=== PATIENT | male | born 1950 | race Caucasian/White ===

== ENCOUNTER 2017-06-08 12:48 | Emergency (ER) | payer OTHER ==
[2017-06-08 13:04] VITALS: BP 166/99
--- NOTE | 2017-06-08 13:20 | EDM.PDOC ---
ED HPI GENERAL MEDICAL PROBLEM - General Chief Complaint: Genitourinary Problem Stated Complaint: URINATING BLOOD Time Seen by Provider: 06/08/17 13:10 Source of Information: Reports: Patient, Old Records History Limitations: Reports: No Limitations - History of Present Illness INITIAL COMMENTS - FREE TEXT/NARRATIVE: 67 yo male [place] patient presents with gross, painless hematuria since yesterday. No fever or flank pain. No recent trauma. Has mild dysuria. No radiating pain or nausea or hx of kidney stones. Is not on warfarin or other anticoagulant other than ASA. Does not feel like he is retaining urine. Onset: Gradual Onset Date: 06/07/17 Duration: Hour(s):, Getting Worse Location: Reports: Other (urethral) Quality: Reports: Burning Severity: Mild Improves with: Reports: None Worsens with: Reports: Other (time/voiding) Context: Reports: Other (Hx of BPH) Associated Symptoms: Reports: No Other Symptoms Treatments LIGHTING ADVISER: Reports: Other (see below) (on Flomax chronically) Penis Pain Score (Numeric/FACES): 5 - Related Data Allergies Allergy/AdvReac Type Severity Reaction Status Date / Time carbamazepine Allergy Cannot Verified 04/02/16 12:37 Remember Home Meds: Home Meds Acetaminophen/HYDROcodone [[place] 325-5 MG] 1 tab PO DAILY 12/14/13 [History] Aspirin [Ecotrin] 81 mg PO DAILY 12/14/13 [History] Calcium Carbonate/Vitamin D3 [Calcium 600 + Vit D 400] 1 each PO BID 12/14/13 [ History] Cholecalciferol (Vitamin D3) [Vitamin D3] 2,000 unit PO DAILY 12/14/13 [History] Cyclobenzaprine [Flexeril] 10 mg PO BID 12/14/13 [History] Fish Oil/[place]-3 Fatty Acids [Fish Oil 1,000 MG] 2 each PO DAILY 12/14/13 [ History] Levothyroxine 25 mcg PO ACBRK 12/14/13 [History] Lisinopril [Prinivil] 20 mg PO DAILY 12/14/13 [History] Naproxen 250 mg PO BID 12/14/13 [History] Sodium Chloride 0.65% [[place] Nasal [place]] 1 spray INH QID 12/14/13 [History] atorvaSTATin Calcium [Atorvastatin Calcium] 40 mg PO DAILY 12/14/13 [History] Tamsulosin [Flomax] 1 tab PO DAILY 05/04/15 [History] Sulfamethoxazole/Trimethoprim [Bactrim Ds Tablet] 1 each PO BID #14 tablet 06/08 [Rx] Past Medical History HEENT History: Reports: Hard of Hearing, Impaired Vision Cardiovascular History: Reports: CAD, High Cholesterol, Hypertension, [place] Gastrointestinal History: Reports: Bowel Obstruction, GERD Genitourinary History: Reports: BPH, Prostate Disorder Musculoskeletal History: Reports: Back Pain, Chronic, Other (See Below) Other Musculoskeletal History: Lower back disc degenerative Neurological History: Reports: Head Trauma Psychiatric History: Reports: PTSD Endocrine/Metabolic History: Reports: Hypothyroidism - Infectious Disease History Infectious Disease History: Reports: Chicken Pox, Measles, Mumps - Past Surgical History GI Surgical History: Reports: Colon Other GI Surgeries/Procedures: tumor out of stomach Other Neurological Surgeries/Procedures: tumors taken out of back Social & Family History - Family History Cardiac: Reports: [place] - Tobacco Use Smoking Status *Q: Never Smoker Second Hand Smoke Exposure: Yes - Caffeine Use Caffeine Use: Reports: Coffee - Alcohol Use Days Per Week of Alcohol Use: 0 - Recreational Drug Use Recreational Drug Use: No ED ROS GENERAL - Review of Systems Review Of Systems: See Below Constitutional: Reports: No Symptoms GI/Abdominal: Reports: No Symptoms : Reports: Dysuria (mild) Musculoskeletal: Reports: No Symptoms Skin: Reports: No Symptoms ED EXAM, RENAL/ - Physical Exam Exam: See Below Exam Limited By: No Limitations General Appearance: Alert, WD/WN, No Apparent Distress GI/Abdominal: Normal Bowel Sounds, Soft, Non-Tender, No Distention. No: Distended Back Exam: No: CVA Tenderness (R), CVA Tenderness (L) Extremities: Normal Inspection, Normal Range of Motion, Non-Tender, No Pedal Edema Neurological: Alert, Oriented, CN II-XII Intact, Normal Cognition, No Motor/ Sensory Deficits Psychiatric: Normal Affect, Normal Mood Skin Exam: Warm, Dry, Intact, Normal Color, No Rash Lymphatic: No Adenopathy Course - Vital Signs Last Recorded V/S: Last Vital Signs Temp 36.2 C 06/08/17 13:03 Pulse 74 06/08/17 13:03 Resp 18 06/08/17 13:03 BP 166/99 H 06/08/17 13:03 Pulse Ox 97 06/08/17 13:03 - Orders/Labs/Meds Orders: Active Orders 24 hr Category Date Time Status CULTURE URINE [RM] Stat Lab 06/08/17 13:06 Received Departure - Departure Time of Disposition: 13:20 Disposition: Home, Self-Care 01 Condition: Good Clinical Impression: Hematuria syndrome - Discharge Information Prescriptions: Sulfamethoxazole/Trimethoprim [Bactrim Ds Tablet] 1 each PO BID #14 tablet Referrals: PCP,None [Primary Care Provider] - Forms: ED Department Discharge Additional Instructions: Take Bactrim DS with plenty of water every 12 hrs. F/U in the clinic either last appt of the day on Monday or Monday if an appt is available. - My Orders Last 24 Hours: My Active Orders 06/08/17 13:06 CULTURE URINE [RM] Stat - Assessment/Plan Last 24 Hours: My Active Orders 06/08/17 13:06 CULTURE URINE [RM] Stat
== END 2017-06-08 13:40 | disposition home or self-care (01) ==
LOC: JP.ED 12:48
DX: R31.9 Hematuria, unspecified (principal); I25.2 Old myocardial infarction; I25.10 Atherosclerotic heart disease of native coronary artery without angina pectoris; I10 Essential (primary) hypertension; E78.00 Pure hypercholesterolemia, unspecified; K21.9 Gastro-esophageal reflux disease without esophagitis; E03.9 Hypothyroidism, unspecified; Z98.890 Other specified postprocedural states; Z79.82 Long term (current) use of aspirin; Z79.899 Other long term (current) drug therapy; Z88.8 Allergy status to other drugs, medicaments and biological substances
CPT/HCPCS: 87086; 99283; 99284

== ENCOUNTER 2018-01-14 00:12 | Emergency (ER) | payer OTHER ==
--- NOTE | 2018-01-14 00:53 | EDM.PDOC ---
ED HPI GENERAL MEDICAL PROBLEM - General Chief Complaint: Genitourinary Problem Stated Complaint: KIDNEY STONES Time Seen by Provider: 01/14/18 00:35 Source of Information: Reports: Patient, Family History Limitations: Reports: No Limitations - History of Present Illness INITIAL COMMENTS - FREE TEXT/NARRATIVE: 67-year-old male with a history of prostatic hypertrophy and acute urinary retention has redeveloped symptoms since 3:00 this afternoon. He's having a lot of lower abdominal pain, bladder distention, urgency, and able to only urinate small amounts frequently. No fever or chills. Onset: Sudden (Symptoms started around 10 hours ago) Severity: Moderate Associated Symptoms: Denies: Fever/Chills, Headaches, Nausea/Vomiting, Shortness of Breath Bladder Pain Score (Numeric/FACES): 8 - Related Data Allergies Allergy/AdvReac Type Severity Reaction Status Date / Time carbamazepine Allergy Cannot Verified 01/14/18 00:23 Remember Home Meds: Home Meds Acetaminophen/HYDROcodone [[place] 325-5 MG] 1 tab PO DAILY 12/14/13 [History] Aspirin [Ecotrin] 81 mg PO DAILY 12/14/13 [History] Calcium Carbonate/Vitamin D3 [Calcium 600 + Vit D 400] 1 each PO BID 12/14/13 [ History] Cholecalciferol (Vitamin D3) [Vitamin D3] 2,000 unit PO DAILY 12/14/13 [History] Cyclobenzaprine [Flexeril] 10 mg PO BID 12/14/13 [History] Fish Oil/[place]-3 Fatty Acids [Fish Oil 1,000 MG] 2 each PO DAILY 12/14/13 [ History] Levothyroxine 25 mcg PO ACBRK 12/14/13 [History] Lisinopril [Prinivil] 20 mg PO DAILY 12/14/13 [History] Naproxen 250 mg PO BID 12/14/13 [History] Sodium Chloride 0.65% [[place] Nasal [place]] 1 spray INH QID 12/14/13 [History] atorvaSTATin Calcium [Atorvastatin Calcium] 40 mg PO DAILY 12/14/13 [History] Tamsulosin [Flomax] 1 tab PO DAILY 05/04/15 [History] Sulfamethoxazole/Trimethoprim [Bactrim Ds Tablet] 1 each PO BID #14 tablet 06/08 [Rx] Past Medical History HEENT History: Reports: Hard of Hearing, Impaired Vision Cardiovascular History: Reports: CAD, High Cholesterol, Hypertension, [place] Gastrointestinal History: Reports: Bowel Obstruction, GERD Genitourinary History: Reports: BPH, Prostate Disorder Musculoskeletal History: Reports: Back Pain, Chronic, Other (See Below) Other Musculoskeletal History: Lower back disc degenerative Neurological History: Reports: Head Trauma Psychiatric History: Reports: PTSD Endocrine/Metabolic History: Reports: Hypothyroidism - Infectious Disease History Infectious Disease History: Reports: Other (See Below) Other Infectious Disease History: malaria - Past Surgical History GI Surgical History: Reports: Colon Other GI Surgeries/Procedures: tumor out of stomach Other Neurological Surgeries/Procedures: tumors taken out of back Musculoskeletal Surgical History: Reports: Hip Replacement Social & Family History - Family History Cardiac: Reports: [place] - Tobacco Use Smoking Status *Q: Never Smoker Second Hand Smoke Exposure: Yes - Caffeine Use Caffeine Use: Reports: Coffee - Alcohol Use Days Per Week of Alcohol Use: 0 - Recreational Drug Use Recreational Drug Use: No ED ROS GENERAL - Review of Systems Review Of Systems: See Below Constitutional: Denies: Fever, Chills Respiratory: Denies: Shortness of Breath Cardiovascular: Denies: Chest Pain GI/Abdominal: Reports: Abdominal Pain : Reports: Urgency, Urinary Retention ED EXAM, RENAL/ - Physical Exam Exam: See Below Exam Limited By: No Limitations General Appearance: Alert, Moderate Distress Respiratory/Chest: No Respiratory Distress, Lungs Clear GI/Abdominal: Tender, Other (Firm and tender lower abdomen from bladder distention) Course - Vital Signs Last Recorded V/S: Last Vital Signs Temp 96 F 01/14/18 00:35 Pulse 76 01/14/18 00:35 Resp 19 01/14/18 00:35 BP 138/63 01/14/18 01:15 Pulse Ox 94 L 01/14/18 00:35 - Orders/Labs/Meds Labs: Laboratory Tests 01/14/18 Range/Units 00:40 Urine Color Yellow Urine Appearance Clear Urine pH 5.0 (4.5-8.0) Ur Specific [place] 1.005 L (1.008-1.030) Urine Protein Negative (NEGATIVE) mg/dL Urine Glucose (UA) Normal (NEGATIVE) mg/dL Urine Ketones Negative (NEGATIVE) mg/dL Urine Occult Blood Large (NEGATIVE) Urine Nitrite Negative (NEGAITVE) Urine Bilirubin Negative (NEGATIVE) Urine Urobilinogen Normal (NORMAL) mg/dL Ur Leukocyte Esterase Negative (NEGATIVE) Urine RBC 5-10 H (0-5) Urine WBC 0-5 (0-5) Ur Epithelial Cells Not seen Amorphous Sediment Not seen Urine Bacteria Not seen Urine Mucus Not seen - Re-Assessments/Exams Free Text/Narrative Re-Assessment/Exam: 01/14/18 00:53 An indwelling Cárdenas catheter was placed and a UA obtained for evaluation. 01/14/18 01:14 A catheter was placed without difficulty and over 1 L of urine was obtained. There were 5-10 RBCs but no other abnormalities in the urine. The patient's symptoms were almost immediately relieved. We discussed options, and elected to leave the catheter in for at least 12 hours and it will be removed tomorrow afternoon as an outpatient. Departure - Departure Time of Disposition: 01:25 Disposition: Home, Self-Care 01 Condition: Good Clinical Impression: Retention of urine - Discharge Information Instructions: Acute Urinary Retention, Male Referrals: PCP,None [Primary Care Provider] - Forms: ED Department Discharge Care Plan Goals: Return tomorrow afternoon or evening for removal of the catheter.
[2018-01-14 01:37] VITALS: BP 138/63
== END 2018-01-14 01:25 | disposition home or self-care (01) ==
LOC: JP.ED 00:12
DX: R33.9 Retention of urine, unspecified (principal); E78.00 Pure hypercholesterolemia, unspecified; I10 Essential (primary) hypertension; I25.2 Old myocardial infarction; I25.10 Atherosclerotic heart disease of native coronary artery without angina pectoris; E03.9 Hypothyroidism, unspecified; Z88.8 Allergy status to other drugs, medicaments and biological substances; Z79.82 Long term (current) use of aspirin; Z79.899 Other long term (current) drug therapy
CPT/HCPCS: 51702; 81001; 99284-25

== ENCOUNTER 2020-06-13 14:39 | Emergency (ER) | payer OTHER ==
[2020-06-13 15:03] VITALS: BP 150/89; PULSE 77
--- NOTE | 2020-06-13 15:32 | EDM.PDOC ---
ED HPI GENERAL MEDICAL PROBLEM - General Chief Complaint: Lower Extremity Injury/Pain Stated Complaint: L HIP PAIN Time Seen by Provider: 06/13/20 15:16 Source of Information: Reports: Patient History Limitations: Reports: No Limitations - History of Present Illness INITIAL COMMENTS - FREE TEXT/NARRATIVE: Patient presents for evaluation of several weeks of worsening left low back pain radiating toward his left side/hip. He has been doing a significant amount of heavy duty lifting, pushing, twisting activities since earlier this month. Most recently, he and his sons removed a leaking fuel oil tank from the basement of his house. It was quite heavy and required a significant amount of physical exertion to get it out of the house. Subsequent to that activity his pain level worsened significantly. Changes of position are very uncomfortable, such as standing from a seated position. When he lies flat, it is not too bad. With certain movements however he will get sudden stabbing pains that radiate to the left from the middle of the back at a low level. He is not weak but certain movements cause significant pain and that affects his mobility. He is not incontinent and has noticed no new areas of numbness or tingling. He has had similar symptoms in the past but they were eventually found to be related to need for a left hip arthroplasty. His hip has felt fine since replacement 3 years ago but he wonders if symptoms today are related to the hip? Onset: Gradual Duration: Week(s): (3-4) Location: Reports: Back, Radiates to (Left buttock) Quality: Reports: Ache, Burning, Sharp Severity: Moderate Improves with: Reports: None Worsens with: Reports: Movement Context: Reports: Lifting Associated Symptoms: Reports: No Other Symptoms - Related Data Allergies Allergy/AdvReac Type Severity Reaction Status Date / Time carbamazepine Allergy Mild Cannot Verified 06/13/20 15:05 Remember Home Meds: Home Meds Calcium Carbonate/Vitamin D3 [Calcium 600 + Vit D 400] 1 each PO BID 12/14/13 [History] Cholecalciferol (Vitamin D3) [Vitamin D3] 2,000 unit PO DAILY 12/14/13 [History] Cyclobenzaprine [Flexeril] 10 mg PO BID PRN 12/14/13 [History] Levothyroxine 25 mcg PO ACBRK 12/14/13 [History] Naproxen 250 mg PO BID 12/14/13 [History] Sodium Chloride 0.65% [[place] Nasal [place]] 1 spray INH QID 12/14/13 [History] atorvaSTATin Calcium [Atorvastatin Calcium] 40 mg PO DAILY 12/14/13 [History] lisinopriL [Prinivil] 20 mg PO DAILY 12/14/13 [History] Acetaminophen 650 mg PO Q4HR PRN 06/13/20 [History] Cider Vinegar [Apple Cider Vinegar] 600 mg PO DAILY 06/13/20 [History] Doxazosin [Doxazosin Mesylate] 2 mg PO DAILY 06/13/20 [History] Past Medical History HEENT History: Reports: Hard of Hearing, Impaired Vision Cardiovascular History: Reports: CAD, High Cholesterol, Hypertension Gastrointestinal History: Reports: Bowel Obstruction, GERD Genitourinary History: Reports: BPH, Prostate Disorder Musculoskeletal History: Reports: Back Pain, Chronic, Other (See Below) Other Musculoskeletal History: Lower back disc degenerative Neurological History: Reports: Head Trauma 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 Psychiatric History: Reports: PTSD Endocrine/Metabolic History: Reports: Hypothyroidism - Infectious Disease History Infectious Disease History: Reports: Other (See Below) Other Infectious Disease History: malaria - Past Surgical History GI Surgical History: Reports: Colon Other GI Surgeries/Procedures: tumor out of stomach Other Neurological Surgeries/Procedures: tumors taken out of back Musculoskeletal Surgical History: Reports: Hip Replacement Social & Family History - Family History Cardiac: Reports: [place] - Tobacco Use Smoking Status *Q: Never Smoker - Caffeine Use Caffeine Use: Reports: Coffee - Recreational Drug Use Recreational Drug Use: No Review of Systems - Review of Systems Review Of Systems: See Below Constitutional: Reports: No Symptoms Genitourinary: Reports: No Symptoms. Denies: Incontinence Musculoskeletal: Reports: Back Pain (Left low back discomfort radiating into the left buttock as described.) Neurological: Reports: Difficulty Walking (Due to pain.), Gait Disturbance. Denies: Paresthesia, Tingling ED EXAM, GENERAL - Physical Exam Exam: See Below Free Text/Narrative:: This is an uncomfortable appearing male interviewed while he is seated in room 4. With change of position, standing up, he gets severe jolts of pain from the low left mid back into the buttock. Exam Limited By: No Limitations General Appearance: Moderate Distress Head: Atraumatic Respiratory/Chest: No Respiratory Distress Cardiovascular: Regular Rate, Rhythm Back Exam: Decreased Range of Motion, Vertebral Tenderness (There is vertebral bony tenderness over most of the lumbar vertebrae.) Neurological: Other (Palpation over the left lumbar paraspinal region causes shooting pain into the left buttock. The hip itself on the left side is not painful.) Course - Vital Signs Last Recorded V/S: Last Vital Signs Temp 36.0 C L 06/13/20 15:02 Pulse 77 06/13/20 15:02 Resp 18 06/13/20 15:02 BP 150/89 H 06/13/20 15:02 Pulse Ox 97 06/13/20 15:02 - Re-Assessments/Exams Free Text/Narrative Re-Assessment/Exam: 06/13/20 16:49 I discussed with him and that this sounds and examines like sciatic nerve pain. Imaging studies are not required at this time. He wishes to avoid any strong, narcotic, pain medication. He was sent with a prescription for prednisone 20 mg, 11 tablets to use in a stepdown manner over the next week. Also a prescrip tion for gabapentin 100 mg, 63 tablets; use in a 7-day step increased dose pattern to improve comfort. I recommend ice packs to the painful area 20 minutes off and on. He should not use heating pads to the area. He could try chiropractic adjustment if he wishes. He should arrange a time with his [facility] primary care team for a recheck regarding these symptoms approximately 10 days from now. He may need additional intervention such as physical therapy or epidural steroids. He will follow through as described. Departure - Departure Time of Disposition: 15:58 Disposition: Home, Self-Care 01 Clinical Impression: Sciatica of left side - Discharge Information Instructions: Sciatica Referrals: PCP,None [Primary Care Provider] - Forms: ED Department Discharge Additional Instructions: Start prednisone today and take as directed over the next 7 days. Start gabapentin today and take regularly over the next 2 weeks. Contact your [place] primary care team on Monday to arrange a follow-up appointment for 10 days or so from now. He likely will need other care for evaluation of this and they can help coordinate things for you. You could certainly try eye care professional as we discussed. If you feel worse in any way return here or any emergency department. Sepsis Event Note (ED) - Evaluation Sepsis Screening Result: No Definite Risk - Focused Exam Vital Signs: Vital Signs Temp Pulse Resp BP Pulse Ox 06/13/20 15:02 36.0 C L 77 18 150/89 H 97
== END 2020-06-13 16:09 | disposition home or self-care (01) ==
LOC: JP.ED 14:39
DX: M54.42 Lumbago with sciatica, left side (principal); I25.10 Atherosclerotic heart disease of native coronary artery without angina pectoris; I10 Essential (primary) hypertension; Z88.8 Allergy status to other drugs, medicaments and biological substances; Z79.899 Other long term (current) drug therapy
CPT/HCPCS: 99283

== ENCOUNTER 2021-05-22 08:02 | Emergency (ER) | payer OTHER ==
--- NOTE | 2021-05-22 08:34 | EDM.PDOC ---
ED HPI GENERAL MEDICAL PROBLEM - General Chief Complaint: Genitourinary Problem Stated Complaint: CANNOT PASS URINE Time Seen by Provider: 05/22/21 08:26 Source of Information: Reports: Patient, RN Notes Reviewed History Limitations: Reports: No Limitations - History of Present Illness INITIAL COMMENTS - FREE TEXT/NARRATIVE: 71-year-old gentleman presents emergency department day complaint of urinary retention, he does have a history of BPH has had this problem in the past a couple years ago. Is having significant abdominal pain - Related Data Allergies Allergy/AdvReac Type Severity Reaction Status Date / Time carbamazepine Allergy Mild Cannot Verified 05/22/21 08:23 Remember Home Meds: Home Meds Calcium Carbonate/Vitamin D3 [Calcium 600 + Vit D 400] 1 each PO BID 12/14/13 [History] Cholecalciferol (Vitamin D3) [Vitamin D3] 2,000 unit PO DAILY 12/14/13 [History] Cyclobenzaprine [Flexeril] 10 mg PO BID PRN 12/14/13 [History] Levothyroxine 25 mcg PO ACBRK 12/14/13 [History] Sodium Chloride 0.65% [[place] Nasal [place]] 1 spray INH QID 12/14/13 [History] atorvaSTATin Calcium [Atorvastatin Calcium] 40 mg PO DAILY 12/14/13 [History] lisinopriL [Prinivil] 20 mg PO DAILY 12/14/13 [History] Acetaminophen 650 mg PO Q4HR PRN 06/13/20 [History] Cider Vinegar [Apple Cider Vinegar] 600 mg PO DAILY 06/13/20 [History] Doxazosin [Doxazosin Mesylate] 2 mg PO DAILY 06/13/20 [History] Aspirin [Halfprin] 81 mg PO BEDTIME 05/22/21 [History] Past Medical History HEENT History: Reports: Hard of Hearing, Impaired Vision Cardiovascular History: Reports: CAD, High Cholesterol, Hypertension Gastrointestinal History: Reports: Bowel Obstruction, GERD Genitourinary History: Reports: BPH, Prostate Disorder Musculoskeletal History: Reports: Back Pain, Chronic, Other (See Below) Other Musculoskeletal History: Lower back disc degenerative Neurological History: Reports: Head Trauma 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 Psychiatric History: Reports: PTSD Endocrine/Metabolic History: Reports: Hypothyroidism - Infectious Disease History Infectious Disease History: Reports: Other (See Below) Other Infectious Disease History: malaria - Past Surgical History GI Surgical History: Reports: Colon Other GI Surgeries/Procedures: tumor out of stomach Other Neurological Surgeries/Procedures: tumors taken out of back Musculoskeletal Surgical History: Reports: Hip Replacement Social & Family History - Family History Cardiac: Reports: [place] - Tobacco Use Tobacco Use Status *Q: Never Tobacco User - Caffeine Use Caffeine Use: Reports: Coffee ED ROS GENERAL - Review of Systems Review Of Systems: See Below : Reports: Urinary Retention ED EXAM, RENAL/ - Physical Exam Exam: See Below Text/Narrative:: Examination after placement of Cárdenas abdominal pain is now resolved abdomen is soft and nontender Exam Limited By: No Limitations General Appearance: Alert, WD/WN, No Apparent Distress Course - Vital Signs Last Recorded V/S: Last Vital Signs Temp 97.8 F 05/22/21 08:16 Pulse 73 05/22/21 08:16 Resp 16 05/22/21 08:16 BP 188/81 H 05/22/21 08:16 Pulse Ox 99 05/22/21 08:16 - Orders/Labs/Meds Orders: Active Orders 24 hr Category Date Time Status Bladder Scan [RC] ASDIRECTED Care 05/22/21 08:19 Active Cárdenas Catheter Insertion [Insert Urinary Catheter] [OM. Care 05/22/21 08:30 Ordered PC] Q24H Urinary Catheter Assessment [RC] ASDIRECTED Care 05/22/21 08:20 Active Departure - Departure Time of Disposition: 08:32 Disposition: Home, Self-Care 01 Condition: Fair Clinical Impression: Urinary retention - Discharge Information Instructions: Acute Urinary Retention, Male Referrals: PCP,None [Primary Care Provider] - Additional Instructions: Continue to use the catheter and urinary retention for comfort, please follow-up with your primary care in the next 2 to 3 days for reevaluation call return to the emergency department worsening of symptoms Sepsis Event Note (ED) - Evaluation Sepsis Screening Result: No Definite Risk - Focused Exam Vital Signs: Vital Signs Temp Pulse Pulse Resp BP BP Pulse Ox 05/22/21 08:16 96.6 F L 69 73 14 114/73 188/81 H 96 - My Orders Last 24 Hours: My Active Orders 05/22/21 08:19 Bladder Scan [RC] ASDIRECTED 05/22/21 08:20 Urinary Catheter Assessment [RC] ASDIRECTED 05/22/21 08:30 Cárdenas Catheter Insertion [Insert Urinary Catheter] [OM.PC] Q24H - Assessment/Plan Last 24 Hours: My Active Orders 05/22/21 08:19 Bladder Scan [RC] ASDIRECTED 05/22/21 08:20 Urinary Catheter Assessment [RC] ASDIRECTED 05/22/21 08:30 Cárdenas Catheter Insertion [Insert Urinary Catheter] [OM.PC] Q24H Plan: Assessment Acuity = acute Site and laterality = urinary retention Etiology = BPH Manifestations = abdominal pain now resolved Location of injury = Home Lab values = none Plan Plan is to leave the catheter in with a leg bag for the next couple days he will follow-up with his primary care for reassessment he does have an appointment with urology at the end of the month This note was dictated using [employer] technology voice recognition software please call with any questions on syntax or grammar.
[2021-05-22 08:43] VITALS: BP 188/81; PULSE 73
== END 2021-05-22 09:24 | disposition home or self-care (01) ==
LOC: JP.ED 08:02
DX: N40.1 Benign prostatic hyperplasia with lower urinary tract symptoms (principal); R33.8 Other retention of urine; E78.00 Pure hypercholesterolemia, unspecified; I10 Essential (primary) hypertension; K21.9 Gastro-esophageal reflux disease without esophagitis; Z88.8 Allergy status to other drugs, medicaments and biological substances; Z79.82 Long term (current) use of aspirin; Z79.899 Other long term (current) drug therapy
CPT/HCPCS: 51702; 99283-25